=== PATIENT | female | born 1945 | race Caucasian/White ===

== ENCOUNTER → 2017-08-27 14:44 | Outpatient (CLI) | payer MEDICARE, OTHER, SELFPAY ==
--- NOTE | 2017-08-27 | DI.RAD.S_ITS ---
PROCEDURE: XR HIP W PEL IF DONE RT 2V INDICATIONS: RIGHT HIP PAIN TECHNIQUE: AP pelvis with lateral view(s) of the right hip(s). COMPARISON: [facility], , PELVIS WITH BILATERAL HIPS, 09/14/2014, 12:55. FINDINGS: Bones: No fractures or dislocations. Pelvic ring appears intact. No suspicious bony lesions. Arthritis of the hips, mild on the left and moderately severe on the right is again noted. There is interval increase in degree of joint space narrowing and marginal hypertrophic changes on the right, now considered grade 3 in severity. Soft tissues: The visualized bowel gas pattern is normal. No suspicious soft tissue calcifications. IMPRESSION: Progressive osteoarthritis right hip. Mild arthritis left hip. Dictated by: Mich Monique M.D. on 08/27/2017 at 15:45 Approved by: Mich Monique M.D. on 08/27/2017 at 15:47
== END ==
PROVIDERS: Family Provider Family Medicine; PCP Family Medicine; Visit Provider Family Medicine
DX: M16.0 Bilateral primary osteoarthritis of hip (principal)
CPT/HCPCS: 73502

== ENCOUNTER → 2017-10-15 11:38 | Outpatient (CLI) | payer MEDICARE, OTHER, SELFPAY ==
--- NOTE | 2017-10-15 | DI.MG.S_ITS ---
BILATERAL DIGITAL SCREENING MAMMOGRAM 3D/2D WITH CAD: 10/15/2017 CLINICAL: Routine screening. Family history of breast cancer. Comparison is made to exams dated: 08/28/2016 mammogram, 08/17/2015 mammogram, and 08/10/2014 mammogram - [facility]. The tissue of both breasts is heterogeneously dense. This may lower the sensitivity of mammography. Current study was also evaluated with a Computer Aided Detection (CAD) system. No significant masses, calcifications, or other findings are seen in either breast. There has been no significant interval change. IMPRESSION: NEGATIVE There is no mammographic evidence of malignancy. A 1 year screening mammogram is recommended. This exam was interpreted at Station ID: [id number]. NOTE: For mammograms, a report in lay terms will be sent to the patient. Approximately 15% of breast malignancies will not be visualized mammographically. In the management of a palpable breast mass, a negative mammogram must not discourage biopsy of a clinically suspicious lesion. Electronically Signed By: Nikolay sherman/yaya:10/15/2017 16:36:36 letter sent: Normal Exam ACR BI-RADS Category 1: Negative [id number]
== END ==
PROVIDERS: Family Provider Family Medicine; PCP Family Medicine; Visit Provider Family Medicine
DX: Z12.31 Encounter for screening mammogram for malignant neoplasm of breast (principal)
CPT/HCPCS: 77063; 77067

== ENCOUNTER → 2018-02-09 11:57 | Outpatient (REF) | payer MEDICARE, OTHER, SELFPAY | LOC: LAB 11:57 | PROVIDERS: Family Provider Family Medicine; PCP Family Medicine; Visit Provider Family Medicine | DX: N39.0 Urinary tract infection, site not specified (principal) | CPT/HCPCS: 87077; 87086; 87186 ==

== ENCOUNTER → 2018-07-10 09:07 | Outpatient (CLI) | payer MEDICARE, OTHER, SELFPAY ==
--- NOTE | 2018-07-10 | DI.MRI.S_ITS ---
PROCEDURE: MR LUMBAR SPINE WO CON INDICATIONS: BILATERAL LEG PAIN TECHNIQUE: Noncontrast sagittal T1 spin echo and T2 fast echo, sagittal STIR, axial T1 and T2 fast spin echo through the lumbar spine. In cases with scoliosis, additional coronal T2 fast spin echo may be performed. COMPARISON: [facility], , L-SPINE 2-3 VIEWS, 08/03/2016, 9:14. FINDINGS: Image quality: Excellent. Alignment and Curvature: The there is trace anterolisthesis of L2 on L3, trace retrolisthesis of L5 on S1. Bone Marrow: Marrow is of normal overall signal. No acute vertebral body compression fractures. Spinal Cord: Conus medullaris terminates at the L1 level. Visualized cord demonstrates normal signal and size. Paraspinous Soft Tissues: No paravertebral masses. Discs: Moderate to severe desiccation is present at L5-S1, mild at L4-5. L1-L2: Minimal disc bulge without spinal stenosis or foraminal narrowing. Mild facet and ligamentum flavum hypertrophy. L2-L3: Mild disc bulge with minimal canal narrowing. Minimal bilateral foraminal narrowing with prominent ligamentum flavum and mild facet hypertrophy. L3-L4: Mild disc bulge with moderate spinal stenosis. Mild to moderate left and minimal right foraminal narrowing with prominent ligamentum flavum and mild facet hypertrophy. L4-L5: Mild disc bulge with moderate spinal stenosis. Minimal to mild bilateral foraminal narrowing with prominent ligamentum flavum hypertrophy and mild facet hypertrophy. L5-S1: Mild disc bulge with trace posterior central protrusion. Moderate spinal stenosis. Mild narrowing to the subarticular recess is noted on the left. IMPRESSION: 1. Multilevel degenerative changes. 2. Multilevel spinal stenosis predominantly secondary to significant ligamentum flavum arthropathy as well as facet arthropathy and disc bulges. 3. Overall mild to moderate multilevel foraminal narrowing predominantly secondary to facet/ligamentum flavum arthropathy. Most prominent level is noted at L3-4. Dictated by: Elida Topete M.D. on 07/10/2018 at 12:21 Approved by: Elida Topete M.D. on 07/10/2018 at 12:27
== END ==
PROVIDERS: Family Provider Family Medicine; PCP Family Medicine; Visit Provider Family Medicine
DX: M79.605 Pain in left leg (principal); M79.604 Pain in right leg; M85.852 Other specified disorders of bone density and structure, left thigh; Z78.0 Asymptomatic menopausal state; E07.9 Disorder of thyroid, unspecified; M47.816 Spondylosis without myelopathy or radiculopathy, lumbar region; M48.062 Spinal stenosis, lumbar region with neurogenic claudication; M48.07 Spinal stenosis, lumbosacral region; M51.26 Other intervertebral disc displacement, lumbar region; M51.27 Other intervertebral disc displacement, lumbosacral region
CPT/HCPCS: 72148; 77080

== ENCOUNTER → 2018-08-06 15:48 | Outpatient (CLI) | payer MEDICARE, OTHER, SELFPAY ==
[2018-08-06 17:18] LABS: Add Manual Diff / Slide Review NO; Basophils Absolute Auto 0 /uL (0-100); Basophils Percent Auto 0.5 % (0-2); Eosinophils Absolute Auto 200 /uL (0-450); Eosinophils Percent Auto 3.4 % (2-4); Hematocrit 36.8 % (36-46); Hemoglobin 12.4 g/dL (12.0-16.0); Lymphocytes Absolute Auto 1300 /uL (1100-4500); Lymphocytes Percent Auto 24.2 % (25-40); Mean Corpuscular HGB Conc 33.8 % (30-36); Mean Corpuscular Volume 88.7 fL (80-100); Monocytes Absolute Auto 500 /uL (0-900); Monocytes Percent Auto 9.3 % (3-14); Neutrophils Absolute Auto 3300 /uL (1500-7000); Neutrophils Percent Auto 62.6 % (50-75); Platelet Count 263 X10^3/uL (150-400); Red Blood Cell Count 4.15 X10^6/uL (4.0-5.2); Red Cell Distribution Width 14.2 % (11.6-14.8); White Blood Cell Count 5.2 X10^3/uL (4.5-11.0)
[2018-08-06 20:28] LABS: Carbon Dioxide 30 mmol/L (22-32); Chloride 103 mmol/L (98-107); HEMOLYSIS < 15 (0-50); Potassium 4.1 mmol/L (3.4-5.1); Sodium 142 mmol/L (137-145)
[2018-08-09 17:31] LABS: Alanine Aminotransferase 35 IU/L (9-52); Albumin Globulin Ratio 1.5 (1.0-2.8); Alkaline Phosphatase 85 U/L (38-126); Aspartate Aminotransferase 20 IU/L (14-36); Bilirubin Total 0.5 mg/dL (0.2-1.3); Blood Urea Nitrogen 18 mg/dL (7-17); Calcium 9.4 mg/dL (8.4-10.2); Estimated Glomerular Filt Rate > 60.0 mL/min (>60); Globulin 2.6 g/dL (1.7-4.1); Glucose 96 mg/dL (80-110); Total Protein 6.6 g/dL (6.3-8.2)
== END ==
PROVIDERS: Family Provider Family Medicine; PCP Family Medicine; Visit Provider Orthopaedic Surgery
DX: Z01.812 Encounter for preprocedural laboratory examination (principal); Z01.818 Encounter for other preprocedural examination; M16.11 Unilateral primary osteoarthritis, right hip
CPT/HCPCS: 36415; 80051; 80053; 85025; 93005

== ENCOUNTER → 2018-11-21 09:24 | Outpatient (CLI) | payer MEDICARE, OTHER, SELFPAY ==
--- NOTE | 2018-11-21 | DI.MG.S_ITS ---
BILATERAL DIGITAL SCREENING MAMMOGRAM 3D/2D WITH CAD: 11/21/2018 CLINICAL: Routine screening. Family history of breast cancer. Comparison is made to exams dated: 10/15/2017 mammogram, 08/28/2016 mammogram, and 08/17/2015 mammogram - [facility]. The tissue of both breasts is heterogeneously dense. This may lower the sensitivity of mammography. Current study was also evaluated with a Computer Aided Detection (CAD) system. No significant masses, calcifications, or other findings are seen in either breast. There has been no significant interval change. IMPRESSION: NEGATIVE There is no mammographic evidence of malignancy. A 1 year screening mammogram is recommended. This exam was interpreted at Station ID: [id number]. NOTE: For mammograms, a report in lay terms will be sent to the patient. Approximately 15% of breast malignancies will not be visualized mammographically. In the management of a palpable breast mass, a negative mammogram must not discourage biopsy of a clinically suspicious lesion. Electronically Signed By: Leo sanchez/yaya:11/21/2018 10:36:27 letter sent: Normal Exam ACR BI-RADS Category 1: Negative [id number]
== END ==
PROVIDERS: PCP Family Medicine; Visit Provider Family Medicine
DX: Z12.31 Encounter for screening mammogram for malignant neoplasm of breast (principal); Z80.3 Family history of malignant neoplasm of breast
CPT/HCPCS: 77063; 77067

== ENCOUNTER → 2018-12-02 16:12 | Outpatient (CLI) | payer MEDICARE, OTHER, SELFPAY ==
[2018-12-02 18:01] LABS: Add Manual Diff / Slide Review NO; Basophils Absolute Auto 0 /uL (0-100); Basophils Percent Auto 0.4 % (0-2); Eosinophils Absolute Auto 100 /uL (0-450); Eosinophils Percent Auto 2.3 % (2-4); Hematocrit 37.9 % (36-46); Lymphocytes Absolute Auto 1600 /uL (1100-4500); Mean Corpuscular HGB Conc 34.3 % (30-36); Mean Corpuscular Hemoglobin 29.2 PG (26-34); Mean Corpuscular Volume 85.3 fL (80-100); Monocytes Absolute Auto 500 /uL (0-900); Monocytes Percent Auto 8.8 % (3-14); Neutrophils Absolute Auto 3300 /uL (1500-7000); Neutrophils Percent Auto 59.5 % (50-75); Platelet Count 240 X10^3/uL (150-400); Red Blood Cell Count 4.44 X10^6/uL (4.0-5.2); Red Cell Distribution Width 14.2 % (11.6-14.8); White Blood Cell Count 5.5 X10^3/uL (4.5-11.0)
[2018-12-02 18:12] LABS: Carbon Dioxide 29 mmol/L (22-32); Chloride 105 mmol/L (98-107); HEMOLYSIS < 15 (0-50); Potassium 4.4 mmol/L (3.4-5.1); Sodium 141 mmol/L (137-145)
== END ==
PROVIDERS: PCP Family Medicine; Referring Provider Orthopaedic Surgery; Visit Provider Physical Medicine & Rehabilitation
DX: M16.11 Unilateral primary osteoarthritis, right hip (principal); M25.551 Pain in right hip; Z01.818 Encounter for other preprocedural examination
CPT/HCPCS: 36415; 80051; 85025

== ENCOUNTER 2018-12-16 06:10 | Inpatient (IN) | payer MEDICARE, OTHER, SELFPAY ==
[2018-12-02 08:35] VITALS: BMI 22.6
[2018-12-16] VITALS (18 sets, daily range): BP systolic 92–144; BP diastolic 51–88; PULSE 38–96; RESP 7–20; TEMP 35.6–36.6; O2SAT 56–100; BMI 22.0
--- NOTE | 2018-12-16 | DI.RAD.S_ITS ---
PROCEDURE: XR PELVIS 1-2V INDICATIONS: POST OPERATIVE RIGHT HIP TECHNIQUE: 1 view(s) of the pelvis acquired. COMPARISON: [facility], CR, XR PELVIS WITH LATERAL HIP RIGHT, 08/06/2018, 8:48. [facility], CR, XR PELVIS WITH LATERAL HIP RIGHT, 02/08/2018, 13:15. [facility], CR, XR HIP W PEL IF DONE RT 2V, 08/27/2017, 14:44. [facility], CR, XR HIP W PEL IF DONE RT 2V, 12/16/2018, 8:49. FINDINGS: Bones: There is right hip arthroplasty with the prosthesis in anatomic alignment. No fractures or dislocations. No suspicious bony lesions. Soft tissues: Visualized bowel gas pattern is normal. No suspicious soft tissue calcifications. Postsurgical changes in right thigh. IMPRESSION: Right hip prosthesis in anatomic alignment. Dictated by: Kaylin Peterson M.D. on 12/16/2018 at 10:20 Approved by: Kaylin Peterson M.D. on 12/16/2018 at 10:22
--- NOTE | 2018-12-16 06:00 | DI.RAD.S_ITS ---
PROCEDURE: XR HIP W PEL IF DONE RT 2V INDICATIONS: interoperative right hip TECHNIQUE: AP pelvis with lateral view(s) of the right hip(s). COMPARISON: [facility], CR, XR HIP W PEL IF DONE RT 2V, 08/27/2017, 14:44. FINDINGS: 2 intraoperative fluoroscopy images demonstrate total hip arthroplasty and placement of a prosthesis. Alignment is anatomic. IMPRESSION: Total arthroplasty of the right hip with the prosthesis in anatomic alignment. Dictated by: Kaylin Peterson M.D. on 12/16/2018 at 9:27 Approved by: Kaylin Peterson M.D. on 12/16/2018 at 9:30
[2018-12-16] MEDS: CELECOXIB 200 MG CAPSULE PO (06:58)
[2018-12-16] MEDS: ACETAMINOPHEN 325 MG TABLET 975 MG PO ×3 (06:59→19:26)
[2018-12-16] MEDS: PREGABALIN 75 MG CAPSULE PO (06:59)
[2018-12-16] MEDS: LACTATED RINGERS 1,000 ML 42 ML IV ×2 (07:10→09:20)
--- NOTE | 2018-12-16 07:46 | PM.PREOP ---
Pre-operative Note Interval Note History & Physical reviewed/Exam performed by Physician: Yes Changes to H&P: No
--- NOTE | 2018-12-16 08:38 | SUR.OPER ---
Head on pillow. Supine on fracture table with bilateral leg secured in padded hana table boots suspended on hana table armature. bilateral arms on padded armboards and secured at less than 90 degrees from body
[2018-12-16] MEDS: CEFAZOLIN 1 GM VIAL IV (08:46)
[2018-12-16] MEDS: KETOROLAC 30 MG/ML VIAL IV (08:51)
[2018-12-16] MEDS: ROPIVACAINE 0.5% PF 5 MG/ML 20ML VIAL 60 ML INJ (08:52)
[2018-12-16] MEDS: MORPHINE 4 MG/ML INJ INJ (08:52)
[2018-12-16] MEDS: TRANEXAMIC ACID 1,000 MG VIAL 2000 MG INJ ×2 (08:52→09:42)
--- NOTE | 2018-12-16 10:12 | PM.OP.1 ---
Operative Date/Time/Diagnoses Date of procedure: 12/16/18 Time of procedure: 10:12 Pre-op diagnosis: Right hip degenerative joint disease Post-op diagnosis: same Procedure & Clinicians Procedure: Right total hip arthroplasty via direct anterior approach (CPT code 27616 with assistant program manager) Same procedure as scheduled: Yes Indications: Patient is an 73-year-old female with severe right hip DJD. The patient has pain with activities and at rest, limited ambulation and activity tolerance, difficulties with ADLs, and failure of conservative treatment. We have discussed the nature of condition, treatment options, risks and benefits, and patient elects to proceed with total hip arthroplasty via direct anterior approach and gives informed consent. Surgeon: Jimmy Amor Picture Engraver: Naebel Parr Anesthesia Type: Spinal Operative Notes Closure Type: primary Specimen(s): none sent Prosthetic devices, grafts, tissues, transplants, or devices: Acetabulum: Ricks and [employer]hew R3 acetabular component size 52 mm Femoral component: Ricks [employer] Nephew Anthology stem size 6 with standard offset Femoral head: 32 mm + 0 cobalt chrome Estimated Blood Loss (mL): 150 Blood products transfused: none Procedure in detail: Patient brought to the operating room and after administration of IV antibiotics and spinal anesthetic placed supine on the [place] table with all bony prominences well padded and both feet wrapped and in the ski boots. Right hip area prepped and draped in the usual sterile fashion then a longitudinal incision created just lateral and distal to the ASIS. This was carried sharply through the skin and subcutaneous tissues down to the fascia overlying the TFL. The fascia was incised longitudinally and the muscle was retracted posteriorly allowing access to the intermuscular interval. Anterior circumflex vessels were identified and cauterized. Retractors were then placed around the inferior medial and superolateral femoral neck and a capsular incision was created with the lateral capsule excised. Femoral neck cut was then made according to preoperative templating and after the level of the cut was checked with fluoroscopy. Femoral head was then removed with a corkscrew device and acetabular retractors were placed. Sequential reaming of the acetabulum to 51 mm was performed with an excellent circumferential ream and fit with the trial. Position of the trial was confirmed satisfactory under fluoroscopic images, so the trial was removed and a permanent size 52 mm Ricks and Nephew R3 acetabular component was inserted and impacted into position under fluoroscopic guidance. Satisfactory position and fixation confirmed a permanent liner was then inserted. The femur was then maximally externally rotated extended and abducted appropriate soft tissue releases were performed the proximal femur entered and sequential broaching to 6 was performed with a [address] for trial reduction. Prior to reduction the position of the implant was confirmed in both AP and lateral fluoroscopic images as satisfactory. The hip was reduced and position and leg lengths were determined to be excellent. Stability testing was also performed and was satisfactory. Trial broach were then removed and a permanent size 6 Ricks and Nephew anthology stem was inserted and impacted into position with excellent position and fixation achieved. A 32 mm +0 cobalt chrome ball thick to the stem and reduced with excellent leg length range of motion and stability characteristics achieved an excellent visualization of leg lengths and position fluoroscopically. Periarticular soft tissues were infiltrated with a combination of ropivacaine, morphine, and Toradol. The hip was irrigated and the TFL fascia was closed with a running 1. Vicryl subcutaneous tissues closed with 2 O Vicryl and into cuticular stitch. Skin also closed with skin adhesive and sterile dressings applied. Anesthetic terminated the patient taken to postanesthesia recovery in satisfactory condition. Complications: none Post-operative Condition: stable Disposition: PACU Plan for aftercare: Patient will be admitted to the acute care [facility], and anticipate discharge on postop day 1 with follow-up in office in 10-14 days. Outpatient physical therapy will be arranged and patient will gradually increase activity as tolerated. Patient will continue use of postoperative Lovenox for 10 days postop.
--- NOTE | 2018-12-16 11:08 | SUR.PHASEI ---
PACU Note: HR 37-45. Asymptomatic. Dr. Serra informed. No complaints of pain. O2 sat WNL on 2 L/TOP LIFT COMPRESSER
[2018-12-16] MEDS: GLYCOPYRROLATE 1 MG/5 ML MDV 0.2 MG IV (11:15)
--- NOTE | 2018-12-16 12:34 | SUR.PHASEI ---
Late entry: Transfer from PACU nursing note-- patient awake, no complaints of pain, HR stabilized after dose of Robinul. HR 52-58, Sinus Cristian. Dressing CDI. Telephone report called trupti Joshi transported patient to IP room 210 via inpatient bed.
[2018-12-16] MEDS: LACTATED RINGERS 1,000 ML 125 ML IV ×2 (13:42→21:52)
--- NOTE | 2018-12-16 13:58 | PC.NURSE ---
pt received from pacu s/p anterior approach for right hip- aquacell in place and is dry and intact - pt reports no pain as of yet and reports no urge to void- denies nausea, taking ice chips/h20 and provided with 1/2 sandwich and crackers - room air spo2 93-98% - NO VOID POST OP YET
--- NOTE | 2018-12-16 16:18 | PT.IIE ---
Current Diagnoses Unilateral primary osteoarthritis, right hip (12/16/18) Surgery Performed Operation Date: 12/16/18 07:45 Actual Procedures p Total Hip Arthroplasty/Anterior Approach(Right) - Jimmy Amor MD Surgical History (Last Updated 12/02/18 @ 09:18 by Mariella Quinones RN) Hx of bilateral cataract extraction (Acute) Hx of thumb surgery (Acute ~1994) Hx of tonsillectomy (Acute) Medical History (Last Updated 12/02/18 @ 09:18 by Mariella Quinones RN) Age-related macular degeneration (Acute) Bilateral leg pain (Acute) Blepharitis of both upper and lower eyelid (Acute) Ear lesion (Acute) HLD (hyperlipidemia) (Acute) Hypothyroidism (Acute) Melanoma (Acute ~2009) Skin cancer (Acute) Physical Therapy Inpatient Evaluation/Re-Eval M1 PT/OT-IP Prior Functional Status Start: 12/16/18 13:33 Freq: NEEDED Status: Active Protocol: Document 12/16/18 16:06 RS (Rec: 12/16/18 16:18 RS [email or web address]) Medical Review Prior Functional Status Medical History Reviewed Yes Diet/Fluid Consistency Regular Communication no known deficits Mobility and Gait ind without device, denies falls Activities of Daily Living and IADL's denies needing assist with any self-care activity Prior Functional Level (Other details) drives Social History Household Members none Living Arrangements House Number of Floors (Floors) Two Floors Number of Stairs To Enter/Railing? 6STE w/ rail, 16 steps inside to 2nd floor with rails Home Environment Standard Height Toilet,Walk in Shower Home Equipment Front Wheel Walker,Straight Cane,Shower Seat with Backrest ,Shower Seat without Backrest, Audio Visual Collections Coordinator Employment Status Retired Additional Social History Comment Dtr will be providing 24/7 assist for the first week M2 PT-IP Current Condition Start: 12/16/18 13:33 Freq: NEEDED Status: Active Protocol: Document 12/16/18 16:06 RS (Rec: 12/16/18 16:18 RS [email or web address]) Physical Therapy Current Condition Current Condition Evaluation Date 12/16/18 Treatment Diagnosis R anterior FARRAH Onset Date 12/16/18 Precautions Anterior Hip Precautions No Hip Extension,No Hip External Rotation Weight Bearing Status Weight Bearing Status Weight Bear as Tolerated M3 PT-IP Subjective Start: 12/16/18 13:33 Freq: NEEDED Status: Active Protocol: Document 12/16/18 16:06 RS (Rec: 12/16/18 16:18 RS [email or web address]) Subjective Physical Therapy Visit Type Type Initial Evaluation Visit Start Time 15:00 Visit Stop Time 16:06 Total Visit Minutes 66 Physical Therapy Visit Comments Patient Comments Pt reports no pain at the moment, feels a little loopy but is motivated to participate. Therapy Pain Assessment Pain When Pain Assessed At Rest Pain Present Pain Present Denied Pain M4 PT-IP Mobility and Gait Start: 12/16/18 13:33 Freq: NEEDED Status: Active Protocol: Document 12/16/18 16:06 RS (Rec: 12/16/18 16:18 RS [email or web address]) PT-Bed Mobility Assessment Supine to Sit Supine to Sit Standby Assistance,Head of Bed Elevated Scooting Scooting to Edge of Bed Standby Assistance PT-Transfer Assessment Sit to and From Stand Sit to and from Stand Contact Guard Assistance Equipment Transfer Assistive Device Gait Belt,Front Wheeled Walker Transfers Transfer Destination Bed,Chair,Toilet Transfer Technique walked Transfer Ability Level of Assist Contact Guard Assistance Comments Mobility Comments Pt did have OH response to first standing attempt, felt a little wobbly but did not have any LOB. BP down to 38/64 after going to the bathroom, quickly josefa to 120s/60s after a few moments of sitting rest in recliner, no further drops measured the remainder of session. Gait Assessment Gait Gait Assistance Required: Contact Guard Assist Distance (Feet) 75 Assistive Devices Assistive Device Front Wheeled Walker Gait Deviations General Gait Pattern Antalgic,Decreased Stride Length,Decreased Feet Clearance Comments Gait Comments Pt with RLE longer before surgery, now exacerbated slightly, pt feels a little unsteady at mid/terminal stance on RLE but compensates well with BUE on FWW. LLE is subsequently shorter. No LOB and otherwise pt demonstrated smooth motion. Pt also very observant of maintain hip precautions while turning. PT-Balance Assessment Sitting Balance and Reactions Static Sitting Balance Ability Normal Dynamic Sitting Balance Ability Good Standing Balance and Reactions Static Standing Balance Ability Good Dynamic Standing Balance Ability Good Device Used FWW M5 PT-IP Objective Assessments Start: 12/16/18 13:33 Freq: NEEDED Status: Active Protocol: Document 12/16/18 16:06 RS (Rec: 12/16/18 16:18 RS [email or web address]) Orientation Orientation/Cognition Level of Alertness Alert Orientation Name,Age,Birthday,Month,Date, Year,Day of Week,Place, Situation Language Function Ability No Deficits Noted Safety Awareness Understands Safety Issues Memory Description No Deficits Noted Gross Range of Motion Lower Extremity ROM Impairments RLE limited within ant hip precautions Strength Comments Strength Comments pt with weaker RLE, most observable actively with R ankle DF, does not have full AROM for this M6 PT-IP Treatment Start: 12/16/18 13:33 Freq: NEEDED Status: Active Protocol: Document 12/16/18 16:06 RS (Rec: 12/16/18 16:18 RS [email or web address]) Physical Therapy Treatment Exercises Exercises Ankle Pumps,Gluteal Sets,Quad Sets,Heel Slides Education Education Provided Precautions,Weight Bearing Status,Post-Op Packet,Safety M7 PT-IP Assessment and Plan Start: 12/16/18 13:33 Freq: NEEDED Status: Active Protocol: Document 12/16/18 16:06 RS (Rec: 12/16/18 16:18 RS [email or web address]) PT Summary Assessment and Plan Potential Rehabilitation Potential Excellent Status of Condition at Evaluation Evolving Summary Impairments Pain,Strength,Balance,Bed Mobility,Transfers,Gait, Activity Tolerance Assessment Summary Pt presents with normal weakness and balance deficits after a R anterior FARRAH, today is POD#0. Pt is able to mobilize mostly with SBA<>CGA with FWW. Pt is below reported functional baseline and has great potential for functional improvement. After family training tomorrow at 0900 with daughter pt will be safe to discharge home with 24/7 assist from daughter. Pt already has FWW and OPPT set up. Goals Bed Mobility Goal Standby Assistance Transfer Goal Standby Assistance,Front Wheeled Walker Gait Goal Standby Assistance,Front Wheel Walker Gait Distance 200 Other Goals up/down 16 steps w/ rail and CGA Days to Meet Goals 1 Frequency of Treatment Frequency Of Treatment Twice a Day Treatment Plan Physical Therapy Treatment Plan Bed Mobility Training,Transfer Training,Gait Training, Therapeutic Exercise,Balance Retraining,Post Op Education, Discharge Planning,Hot or Cold Pack,Neuromuscular Re-ed, Coordination Retraining,Manual Therapy Other Recommendations and Next Treatment family training at 0900 with [employer] dtr on Sunday Recommendations To Nursing Amount of Assist Needed 1 Person Assist Discharge Recommendations PT Discharge Recommendations Home with Assistance, Outpatient PT
[2018-12-16] MEDS: CEFAZOLIN 2 GM/100 ML FROZ.PIGGY IV (16:58)
[2018-12-17] VITALS: BP 135/66; PULSE 55; RESP 16; TEMP 36.2; O2SAT 95
[2018-12-17] MEDS: CEFAZOLIN 2 GM/100 ML FROZ.PIGGY IV (00:47)
--- NOTE | 2018-12-17 04:41 | PC.NURSE ---
Pt VSS, pt is complaining of some pain 10/16 but only has scheduled tylenol and PRN pain medication but refuses to have narcotics. Pt.'s cms is intact, VSS, lung sounds clear bilaterally. SCD's are on. Pt's aquacell dressing is clean/dry and intact.
[2018-12-17 06:36] LABS: Hematocrit 34.1 % (36-46); Hemoglobin 11.6 g/dL (12.0-16.0)
[2018-12-17] MEDS: ENOXAPARIN 40 MG/0.4 ML SYRINGE SUBCUT (07:33)
[2018-12-17] MEDS: ACETAMINOPHEN 325 MG TABLET 975 MG PO (07:33)
--- NOTE | 2018-12-17 07:45 | PM.DS.1 ---
History of Present Illness History of Present Illness Date Patient Seen: 12/17/18 Time Patient Seen: 07:32 Chief complaint: [address] Total Right Hip Athroplasty Narrative: Patient is an 73-year-old female with severe right hip DJD. The patient has pain with activities and at rest, limited ambulation and activity tolerance, difficulties with ADLs, and failure of conservative treatment. We have discussed the nature of condition, treatment options, risks and benefits, and patient elects to proceed with total hip arthroplasty via direct anterior approach and gives informed consent. Discharge Providers Provider Date of admission: 12/16/18 06:10 Discharge Date: 12/17/18 Primary care physician: Danny Bowles MD Consults: 12/16/18 12:26 Consult to Discharge Planning Routine Comment: Consult to Physical Therapy Evaluate & Treat Comment: Physician Instructions: post op FARRAH protocol Consult to Respiratory Therapy Evaluate & Treat Comment: Physician Instructions: Evaluate and treat Discharge provider: Anna Vallecillo PA-C Summary Hospital Course Discharge Diagnosis: s/p FARRAH malignant melanoma osteoarthritis Hospital Course: Mariella was admitted for a total hip arthroplasty with Dr. Amor. Hospital course was unremarkable. On postop day 1. Patient was ready to discharge home. She is eating and voiding without difficulty or assistance. Pain was well controlled. She has been up with physical therapy throughout her stay. Lovenox for DVT prophylaxis. Status at Discharge Functional status at discharge: uses cane/walker Exam Vital Signs (past 8 hours): - 12/17/18 00:00 Temperature 97.2 F L Pulse Rate 55 L Respiratory Rate 16 Blood Pressure 135/66 Pulse Oximetry 95 Oxygen Delivery Method Room Air Oxygen Flow Rate 0 Narrative Exam Narrative: Patient sitting up in bed in no acute distress. She is alert and oriented x3. Calves are soft, compressible, nontender bilaterally. Dressing is CDI. Sensation intact to light touch throughout bilateral lower extremities. She is able to actively dorsiflex plantar flex. Pain well controlled this morning. No complaints. Objective Labs Result Diagrams: 12/17/18 06:25 Labs: Laboratory Results - last 24 hr 12/17/18 06:25 Hgb 11.6 L Hct 34.1 L Discharge Plan Discharge Plan Patient Disposition: Home Discharge Med Rec/Prescriptions Prescriptions: New enoxaparin [Lovenox] 40 mg/0.4 mL Syringe 40 mg subcut DAILY 9 Days RF: 0 Continued atorvastatin [Lipitor] 10 MG tablet 5 mg PO BEDTIME Qty: 0 RF: 0 coenzyme Q10 [Co Q-10] 100 mg Capsule 100 mg PO DAILY Qty: 0 RF: 0 levothyroxine 125 mcg Tablet 125 mcg PO QAM RF: 0 ibuprofen [Advil] 200 mg Tablet 200 mg PO DAILY PRN (Reason: Pain) RF: 0 estradiol 0.01 % (0.1 mg/gram) Cream 1 g VAGINAL 2XW RF: 0 PreserVision AREDS-2 [phone] Capsule 1 tab PO BID RF: 0 Discontinued aspirin 81 MG tablet,delayed release (DR/EC) 81 mg PO QDAY Qty: 0 RF: 0 Follow up/Referrals: Danny Bowles MD [Primary Care Provider] - Skin/Wound/Dressing Care Report to your healthcare provider any signs of infection, such as:: chills, fever and increased pain Visit Report/Discharge Packet Instructions: DI for Hip Replacement, Enoxaparin Injection Discharge Data Primary Care Provider: Danny Bowles Discharges patient from system. Discharge Date/Time: 12/17/18 10:00
[2018-12-17 08:00] VITALS: BP 144/80; PULSE 67; RESP 15; TEMP 37; O2SAT 94
--- NOTE | 2018-12-17 09:36 | PT.IPTN ---
Current Diagnoses Unilateral primary osteoarthritis, right hip (12/16/18) Surgery Performed Operation Date: 12/16/18 07:45 Actual Procedures p Total Hip Arthroplasty/Anterior Approach(Right) - Jimmy Amor MD Physical Therapy Treatment Note M2 PT-IP Current Condition Start: 12/16/18 13:33 Freq: NEEDED Status: Active Protocol: Document 12/16/18 16:06 RS (Rec: 12/16/18 16:18 RS [id number]) Physical Therapy Current Condition Current Condition Evaluation Date 12/16/18 Treatment Diagnosis R anterior FARRAH Onset Date 12/16/18 Precautions Anterior Hip Precautions No Hip Extension,No Hip External Rotation Weight Bearing Status Weight Bearing Status Weight Bear as Tolerated M3 PT-IP Subjective Start: 12/16/18 13:33 Freq: NEEDED Status: Active Protocol: Document 12/17/18 09:12 CLB (Rec: 12/17/18 10:31 CLB [id number]) Subjective Physical Therapy Visit Type Type Treatment Note Visit Start Time 09:12 Visit Stop Time 09:36 Total Visit Minutes 24 Notes Pt daughter present for CG training. Number of ANTHROPOLOGY LECTURER Visits 1 Physical Therapy Visit Comments Patient Comments Pt willing to ambulate and trial stairs. Patient Goals Go home with daughter today. Therapy Pain Assessment Pain When Pain Assessed During Mobility Pain Present Pain Present Pain Reported M4 PT-IP Mobility and Gait Start: 12/16/18 13:33 Freq: NEEDED Status: Active Protocol: Document 12/17/18 09:12 CLB (Rec: 12/17/18 10:31 CLB [id number]) PT-Bed Mobility Assessment Supine to Sit Supine to Sit Standby Assistance Sit to Supine Sit to Supine Standby Assistance Scooting Scooting to Edge of Bed Standby Assistance PT-Transfer Assessment Sit to and From Stand Sit to and from Stand Standby Assistance Equipment Transfer Assistive Device Gait Belt,Front Wheeled Walker Transfers Transfer Destination Chair Transfer Technique walked Transfer Ability Level of Assist Standby Assistance Comments Mobility Comments Pt is SBA for all bed mobility and transfers. Pt had no dizziness with sitting up or standing. Gait Assessment Gait Gait Assistance Required: Standby Assistance Distance (Feet) 150 Able to Maintain Weight Bearing Status Yes During Gait Assistive Devices Assistive Device Gait Belt,Front Wheeled Walker Gait Deviations General Gait Pattern Antalgic,Decreased Stride Length,Decreased Feet Clearance Comments Gait Comments Pt increased ambulation distance with steady gait and safety awareness. Stair Climbing Assessment Evaluation Level of Assist On Stairs Standby Assistance,Contact Guard Assistance Devices Stair Climbing Assistive Devices Left Railing,Right Railing Technique/Endurance Stair Climbing Direction Ascend and Descend Stair Climbing Technique Step to Step Number of Steps Climbed 3 Stair Climbing Set # Repetitions (reps) 5 Comments Stair Climbing Comments Pt able to perform stair climbing with SBA-CGA with daughters assist. M5 PT-IP Objective Assessments Start: 12/16/18 13:33 Freq: NEEDED Status: Active Protocol: Document 12/16/18 16:06 RS (Rec: 12/16/18 16:18 RS [id number]) Orientation Orientation/Cognition Level of Alertness Alert Orientation Name,Age,Birthday,Month,Date, Year,Day of Week,Place, Situation Language Function Ability No Deficits Noted Safety Awareness Understands Safety Issues Memory Description No Deficits Noted Gross Range of Motion Lower Extremity ROM Impairments RLE limited within ant hip precautions Strength Comments Strength Comments pt with weaker RLE, most observable actively with R ankle DF, does not have full AROM for this M6 PT-IP Treatment Start: 12/16/18 13:33 Freq: NEEDED Status: Active Protocol: Document 12/17/18 09:12 CLB (Rec: 12/17/18 10:31 CLB [id number]) Physical Therapy Treatment Exercises Exercises Ankle Pumps,Gluteal Sets,Quad Sets,Heel Slides Other Treatments Other Treatment Performed Pt recalled 2/2 anterior hip precautions. M7 PT-IP Assessment and Plan Start: 12/16/18 13:33 Freq: NEEDED Status: Active Protocol: Document 12/17/18 09:12 CLB (Rec: 12/17/18 10:31 CLB [id number]) PT Summary Assessment and Plan Potential Rehabilitation Potential Excellent Status of Condition at Evaluation Evolving Summary Impairments Pain,Strength,Balance,Bed Mobility,Transfers,Gait, Activity Tolerance Assessment Summary Pt POD#1 improving with all mobility. Pt able to ambulate ~150ft to stairs and perform stairs with daughters assist. Pt is able to get OOB from flat bed SBA. Pt ambulates with steady safe gait and climbs stairs safely with daughter assist. Pt seems able to d/c with assist of daughter when medically stable . Goals Bed Mobility Goal Standby Assistance Transfer Goal Standby Assistance,Front Wheeled Walker Gait Goal Standby Assistance,Front Wheel Walker Gait Distance 200 Other Goals up/down 16 steps w/ rail and CGA Days to Meet Goals 1 Frequency of Treatment Frequency Of Treatment Twice a Day Treatment Plan Physical Therapy Treatment Plan Bed Mobility Training,Transfer Training,Gait Training, Therapeutic Exercise,Balance Retraining,Post Op Education, Discharge Planning,Hot or Cold Pack,Neuromuscular Re-ed, Coordination Retraining,Manual Therapy Recommendations To Nursing Amount of Assist Needed 1 Person Assist Discharge Recommendations PT Discharge Recommendations Home with Assistance, Outpatient PT
--- NOTE | 2018-12-17 12:09 | CM.DANOTE ---
DCP/Assessment: Reviewed chart Patient is a 73yr old female admitted [facility] for right FARRAH performed on 12-16-[address] Amor. PCP is Dr. Bowles. Primary payor is 1)Medicare 2)[employer]. Attempted to meet with patient to explain CM/SW role. Patient had already been discharged at time of CM team visit. Spoke with RN whom reports patient is bland path patient and had no d/c planning needs. Patient scheduled to attend outpatient therapy. Family provided transport. P: Home today with no identified d/c planning needs. ERIKA Alvarez Discharge Planning/Care Management CM Discharge Assessment Start: 12/17/18 12:07 Freq: Status: Discharge Protocol: Document 12/17/18 12:07 KJS (Rec: 12/17/18 12:09 KJS [id number]) Discharge Planning Assessment Assigned Director Of Neurology ERIKA Alvarez Advance Directives? Yes Advance Directives on File No History Provided By Medical Record Prior Living Arrangements House Household Members none Willing to Return to Facility? No Independent with ADL's Yes Is patient alert and oriented? Yes Caregiver for Another No DME Already Rented / Owned FWW / Walker Patient/Family Preference OP PT Therapy Barriers to Discharge No Discharge Plan Home Transportation Arrangement Family to provide transport Referrals Initiated None needed Review Status In Process Next Review Type Continued Stay Review Pre-Anesthesia Assessment Start: 12/02/18 08:35 Freq: Status: Complete Protocol: Document 12/02/18 08:35 CAB (Rec: 12/02/18 09:54 CAB [id number]) Pre-Anesthesia Assessment Patient Information Reviewed Via Phone Assessment Assessment Completed With Patient Diagnostic Results BMP/CMP,CBC,EKG Comment Labs/EKG @ 08/06/18 Primary Care Provider Danny Bowles Medical Clearance Received Yes Seen Specialist in Last 12 Months Yes Specialist Seen Screenplay Writer,Orthopedist Comment PCP clearance scanned to record Primary Language [place] [employer] Counter Person Required No Height 171.45 cm Weight 66.678 kg Body Mass Index (BMI) 22.6 Hearing Ability Normal Visual Assist Magnifying Glass Dentition Type Teeth, Natural Present Barriers to Learning None Other Aids No Hx Anesthesia Reactions No Hx Family Anesthesia Reaction No Hx Malignant Hyperthermia No Hx Blood Transfusions No Anesthesia Review Requested No Entry Processor No alcohol intake current alcohol intake frequency 0-2 drinks per day Smoking Status Never smoker Substance Use Type does not use Pain Present Pain Reported Musculoskeletal Symptoms Abnormal Gait,Difficulty Walking,Joint Pain History of Falling (Recent or History of No ) Patient is completely paralyzed or No completely immobile Mental Status Oriented to own ability Is patient on oxygen? No Does patient have REYES/SOB No Hx Sleep Apnea No Currently Taking a Beta Santiago No Can You Climb a Flight of Stairs Without Yes SOB Hx Chest Pain No Hx SOB No Hx Syncope or Dizziness No Anti-Coagulant Therapy No Has a Commercial Field Inspector No Cardiac Testing No Hx Pacemaker/ICD No Pacemaker Rep Required? No Diet Type At Home Regular dysphagia No Bladder Pattern Frequency Urinary Catheter Present No Hx Urinary Self Catheterization No Diabetes No Patient No Lactating No Hx Drug Resistant Organism No Presence of External or Internal Medical No Devices Have you traveled outside the [facility] in the last 30 days? Marital Status / Lives With none Prior Living Arrangements House Number of Floors (Floors) Two Floors Support System Child/Children Does the Patient Have Assistance After Yes Surgery Patient Discharge Plan Description Return Home Comment Daughter will stay w/pt @ [facility]. Pt advised overnight length of stay per surge Feels Safe in Current Environment Yes Been Physically Hurt or Threatened By a No Person in Current Environment Do you have thoughts of harming yourself None or others? Are you currently considering suicide? No Do you have a plan to hurt yourself or No Plan others? Do You Have Any Spiritual Beliefs That No May Affect Your HC Choices? Do You Have Any Cultural Practices That No May Affect Your HC Choices? Comment Prostestant Who Can We Speak to About Patient's Care Family, friends Identifying Code for Release of Patient Declines to issue Information Health Care Proxy/Next of Kin Misty (daughter) Health Care Proxy Emergency Contact Name Misty (daughter) Saturnino (son) Emergency Contact Phone Number Misty: [phone] [phone] Advance Directives? Yes Advance Directives on File No Requested Patient Bring Advanced Yes Directives DOS Power of Import Customs Clearing Agent Yes Power of Import Customs Clearing Agent Name Misty (daughter) Power of Import Customs Clearing Agent PAC Instructions Do not shave/clip surgical site,Durable medical equipment ,Medications to take/avoid, Nasal antibiotic,No ETOH/ petroleum product on skin DOS, NPO,Post-op transportation,Pre -surgical wash,Sturdy shoes/ comfortable clothes,Do not bring valuables and remove jewelry
== END 2018-12-17 10:00 | disposition home or self-care (01) | DRG 470 ==
PROVIDERS: Admitting Provider Orthopaedic Surgery; PCP Family Medicine; Visit Provider Orthopaedic Surgery
PROC: 0SR902Z Replacement of Right Hip Joint with Metal on Polyethylene Synthetic Substitute, Open Approach (ICD-10-PCS; CPT 27130; principal; 2018-12-16 07:45)
DX: M16.11 Unilateral primary osteoarthritis, right hip (principal); Z87.891 Personal history of nicotine dependence
CPT/HCPCS: 36415; 72170; 73502; 76000; 85014; 85018; 97110; 97116; 97161; 97530; C1776; J0690; J1650; J1885; J2250; J2270; J2704; J3010

== ENCOUNTER → 2019-03-25 08:04 | Outpatient (CLI) | payer MEDICARE, OTHER, SELFPAY ==
[2018-12-16 12:30] VITALS: BMI 22.0
[2019-03-25 09:14] LABS: Cholesterol 162 mg/dL (140-199); HDL Cholesterol 38 mg/dL (40-60); LDL Cholesterol Calculated 91 mg/dL (<100); Triglycerides 165 mg/dL (35-150); VLDL Cholesterol Calculated 33 mg/dL (2-30)
== END ==
PROVIDERS: PCP Family Medicine; Visit Provider Family Medicine
DX: E78.5 Hyperlipidemia, unspecified (principal)
CPT/HCPCS: 36415; 80061

== ENCOUNTER → 2019-11-24 15:29 | Outpatient (CLI) | payer MEDICARE, OTHER, SELFPAY ==
[2018-12-16 12:30] VITALS: BMI 22.0
--- NOTE | 2019-11-24 | DI.MG.S_ITS ---
BILATERAL DIGITAL SCREENING MAMMOGRAM 3D/2D WITH CAD: 11/24/2019 CLINICAL: Routine screening. Family history of breast cancer. Comparison is made to exams dated: 11/21/2018 mammogram, 10/15/2017 mammogram, and 08/28/2016 mammogram - [facility]. The tissue of both breasts is heterogeneously dense. This may lower the sensitivity of mammography. Current study was also evaluated with a Computer Aided Detection (CAD) system. No significant masses, calcifications, or other findings are seen in either breast. There has been no significant interval change. IMPRESSION: NEGATIVE There is no mammographic evidence of malignancy. A 1 year screening mammogram is recommended. This exam was interpreted at Station ID: [id number]. NOTE: For mammograms, a report in lay terms will be sent to the patient. Approximately 15% of breast malignancies will not be visualized mammographically. In the management of a palpable breast mass, a negative mammogram must not discourage biopsy of a clinically suspicious lesion. Electronically Signed By: Rebeca fleming/yaya:11/24/2019 15:44:14 letter sent: Normal Exam ACR BI-RADS Category 1: Negative 3341F
== END ==
PROVIDERS: PCP Family Medicine; Referring Provider Family Medicine; Visit Provider Family Medicine
DX: Z12.31 Encounter for screening mammogram for malignant neoplasm of breast (principal); Z80.3 Family history of malignant neoplasm of breast
CPT/HCPCS: 77063; 77067

== ENCOUNTER → 2020-12-09 14:35 | Outpatient (CLI) | payer MEDICARE, OTHER, SELFPAY ==
[2018-12-16 12:30] VITALS: BMI 22.0
--- NOTE | 2020-12-09 | DI.MG.S_ITS ---
BILATERAL DIGITAL SCREENING MAMMOGRAM 3D/2D WITH CAD: 12/09/2020 CLINICAL: Routine screening. Family history of breast cancer. Comparison is made to exams dated: 11/24/2019 mammogram, 11/21/2018 mammogram, and 10/15/2017 mammogram - [facility]. The tissue of both breasts is heterogeneously dense. This may lower the sensitivity of mammography. Current study was also evaluated with a Computer Aided Detection (CAD) system. No significant masses, calcifications, or other findings are seen in either breast. There has been no significant interval change. IMPRESSION: NEGATIVE There is no mammographic evidence of malignancy. A 1 year screening mammogram is recommended. This exam was interpreted at Station ID: [id number]. NOTE: For mammograms, a report in lay terms will be sent to the patient. Approximately 15% of breast malignancies will not be visualized mammographically. In the management of a palpable breast mass, a negative mammogram must not discourage biopsy of a clinically suspicious lesion. Electronically Signed By: Leo sanchez/yaya:12/09/2020 17:58:00 letter sent: Normal Exam ACR BI-RADS Category 1: Negative 3341F
== END ==
PROVIDERS: PCP Family Medicine; Referring Provider Family Medicine; Visit Provider Family Medicine
DX: M85.88 Other specified disorders of bone density and structure, other site (principal); Z12.31 Encounter for screening mammogram for malignant neoplasm of breast; Z78.0 Asymptomatic menopausal state; E07.9 Disorder of thyroid, unspecified
CPT/HCPCS: 77063; 77067; 77080

== ENCOUNTER → 2021-03-15 14:09 | Outpatient (CLI) | payer MEDICARE, OTHER, SELFPAY ==
[2018-12-16 12:30] VITALS: BMI 22.0
--- NOTE | 2021-03-15 | DI.MRI.S_ITS ---
PROCEDURE: MR KNEE RT WO/W CON INDICATIONS: Other specified joint disorders, right knee TECHNIQUE: Noncontrast sagittal PD fast spin echo and T2 fast spin echo with fat saturation, sagittal 3-D FLASH with fat saturation; coronal T1 spin echo and PD fast spin echo with fat saturation, and axial T1 spin echo and PD fast spin echo with fat saturation through the knee. Post-contrast axial, coronal, and sagittal T1 spin echo with fat saturation through the knee. COMPARISON: None. FINDINGS: Image quality: Excellent. Menisci: The medial and lateral menisci demonstrate normal morphology and internal signal. The meniscal root ligaments appear intact. Cruciate ligaments: The anterior and posterior cruciate ligaments appear intact. Medial structures: The medial collateral ligament appears intact. Visualized portions of the pes anserinus tendons appear normal. No abnormal bursal fluid. Lateral structures: The lateral collateral ligament, long and short heads of the biceps femoris tendon appear intact. The popliteus tendon appears normal. Iliotibial band appears normal. Anterior structures: The quadriceps and patellar tendons appear intact. Patellar alignment is normal. No femoral trochlear dysplasia or ventral trochlear prominence. Moderate edema in the superolateral aspect of the infrapatellar fat pad. Bones and cartilage: No displaced fracture. Moderate ill-defined T2 signal elevation within the patellar apex. Severe overlying articular cartilage loss is present. Mild articular cartilage loss overlies the lateral patellar facet inferiorly. Mild articular cartilage loss overlies the lateral patellar apex. Joint space: There is physiologic knee joint fluid. No Beltre's cyst. Normal appearing synovial plicae are incidentally noted. IMPRESSION: 1. No internal derangement. 2. Findings consistent with lateral patellofemoral friction syndrome in the appropriate clinical setting. 3. Medial and patellofemoral compartment articular cartilage loss. Dictated by: Jonathan Mccartney M.D. on 03/15/2021 at 15:33 Approved by: Jonathan Mccartney M.D. on 03/15/2021 at 16:59
== END ==
PROVIDERS: PCP Family Medicine; Referring Provider Family Medicine; Visit Provider Family Medicine
DX: M25.861 Other specified joint disorders, right knee (principal)
CPT/HCPCS: 73723; A9579

== ENCOUNTER → 2021-12-15 11:27 | Outpatient (CLI) | payer MEDICARE, OTHER, SELFPAY ==
[2018-12-16 12:30] VITALS: BMI 22.0
--- NOTE | 2021-12-15 | DI.MG.S_ITS ---
BILATERAL DIGITAL SCREENING MAMMOGRAM 3D/2D WITH CAD: 12/15/2021 CLINICAL: Routine screening. Family history of breast cancer. Comparison is made to exams dated: 12/09/2020 mammogram, 11/24/2019 mammogram, and 11/21/2018 mammogram - [facility]. Both breasts are heterogeneously dense, which may obscure small masses (category c / 51-75% glandular tissue). Current study was also evaluated with a Computer Aided Detection (CAD) system. No significant masses, calcifications, or other findings are seen in either breast. There has been no significant interval change. IMPRESSION: NEGATIVE There is no mammographic evidence of malignancy. A 1 year screening mammogram is recommended. Based on the Tyrer Cuzick model (a risk assessment model) the patient's lifetime risk is 11.7% and her 10 year risk is 0.0%. According to the ACR, ACS, and NCCN guidelines, an annual breast MRI exam along with mammogram is recommended if the patient's lifetime risk is 20% or greater. This exam was interpreted at Station ID: [id number]. NOTE: For mammograms, a report in lay terms will be sent to the patient. Approximately 15% of breast malignancies will not be visualized mammographically. In the management of a palpable breast mass, a negative mammogram must not discourage biopsy of a clinically suspicious lesion. Electronically Signed By: Sameer tripp/yaya:12/15/2021 12:52:48 letter sent: Normal Exam ACR BI-RADS Category 1: Negative 3341F
== END ==
PROVIDERS: PCP Family Medicine; Referring Provider Family Medicine; Visit Provider Family Medicine
DX: Z12.31 Encounter for screening mammogram for malignant neoplasm of breast (principal); Z80.3 Family history of malignant neoplasm of breast
CPT/HCPCS: 77063; 77067

== ENCOUNTER → 2022-12-19 08:09 | Outpatient (CLI) | payer MEDICARE, OTHER, SELFPAY ==
[2018-12-16 12:30] VITALS: BMI 22.0
--- NOTE | 2022-12-19 | DI.MG.S_ITS ---
BILATERAL DIGITAL SCREENING MAMMOGRAM 3D/2D WITH CAD: 12/19/2022 CLINICAL: Routine screening. Family history of breast cancer. Comparison is made to exams dated: 12/15/2021 mammogram, 12/09/2020 mammogram, and 11/24/2019 mammogram - [facility]. Both breasts are heterogeneously dense, which may obscure small masses (category c / 51-75% glandular tissue). Current study was also evaluated with a Computer Aided Detection (CAD) system. There is an equal density asymmetry with a spiculated margin in the right breast at 1 o'clock posterior depth. This is more prominent and increased in size. There also is a possible developing irregular asymmetry in the right breast posterior depth central to the nipple seen on the craniocaudal view only. No other significant masses, calcifications, or other findings are seen in either breast. IMPRESSION: INCOMPLETE: NEEDS ADDITIONAL IMAGING EVALUATION The equal density asymmetry in the right breast at 1 o'clock posterior depth is indeterminate. Additional views with possible ultrasound are recommended. The possible developing irregular asymmetry in the right breast posterior depth central to the nipple seen on the craniocaudal view only is indeterminate. Additional views with possible ultrasound are recommended. Based on the Tyrer Cuzick model (a risk assessment model) the patient's lifetime risk is 10.5% and her 10 year risk is 0.0%. According to the ACR, ACS, and NCCN guidelines, an annual breast MRI exam along with mammogram is recommended if the patient's lifetime risk is 20% or greater. This exam was interpreted at Station ID: [id number]. NOTE: For mammograms, a report in lay terms will be sent to the patient. Approximately 15% of breast malignancies will not be visualized mammographically. In the management of a palpable breast mass, a negative mammogram must not discourage biopsy of a clinically suspicious lesion. Electronically Signed By: Luly quintero/yaya:12/19/2022 12:41:34 letter sent: Additional Imaging Needed ACR BI-RADS Category 0: Incomplete 3340F
== END ==
PROVIDERS: PCP Family Medicine; Referring Provider Family Medicine; Visit Provider Family Medicine
DX: Z12.31 Encounter for screening mammogram for malignant neoplasm of breast (principal); Z80.3 Family history of malignant neoplasm of breast
CPT/HCPCS: 77063; 77067

== ENCOUNTER → 2023-01-12 09:19 | Outpatient (CLI) | payer MEDICARE, OTHER, SELFPAY ==
[2018-12-16 12:30] VITALS: BMI 22.0
--- NOTE | 2023-01-12 | DI.US.S_ITS ---
ULTRASOUND OF RIGHT BREAST AND AXILLA: 01/12/2023 CLINICAL: Patient returns today to evaluate an asymmetry in the right breast. Comparison is made to exams dated: 01/12/2023 mammogram, 12/19/2022 mammogram, 12/15/2021 mammogram, 12/09/2020 mammogram, 11/24/2019 mammogram, and 11/21/2018 mammogram - [facility]. Color flow and real-time ultrasound of the right breast axilla were performed. Fernández scale images of the real-time examination were reviewed. There is a 0.6 cm x 0.6 cm x 0.6 cm oval mass in the right breast at 2 o'clock middle depth 6 cm from the nipple. This oval mass is hypoechoic with an echogenic boundary and posterior acoustic shadowing. No significant abnormalities were seen sonographically in the right axilla. IMPRESSION: SUSPICIOUS OF MALIGNANCY The 0.6 cm x 0.6 cm x 0.6 cm oval mass in the right breast is suspicious of malignancy. An ultrasound guided biopsy is recommended. No sonographic abnormalities identified in the axilla. No axillary adenopathy. Findings and recommendations were discussed with the patient by Dr. Mccartney during today's examination. This exam was interpreted at Station ID: [id number]. Electronically Signed By: Leo Giles M.D. aty/:01/12/2023 12:59:41 letter sent: Biopsy Required Ultrasound BI-RADS: 4 Suspicious for malignancy
--- NOTE | 2023-01-12 | DI.MG.S_ITS ---
UNILATERAL RIGHT DIGITAL DIAGNOSTIC MAMMOGRAM 3D/2D WITH ADDITIONAL VIEWS: 01/12/2023 CLINICAL: Additional evaluation requested from prior study. Comparison is made to exams dated: 12/19/2022 mammogram, 12/15/2021 mammogram, and 12/09/2020 mammogram - [facility]. The right breast is heterogeneously dense, which may obscure small masses (category c / 51-75% glandular tissue). There is an equal density asymmetry with a spiculated margin in the right breast at 2 o'clock posterior depth. This is seen in additional views. This is more prominent and increased in size. The possible developing benign irregular asymmetry in the right breast posterior depth central to the nipple seen on the craniocaudal view only is not reproduced and presumably represented superimposed breast tissue. This is not seen in additional views. No other significant masses or calcifications are seen in the breast. IMPRESSION: INCOMPLETE: NEEDS ADDITIONAL IMAGING EVALUATION The equal density asymmetry in the right breast at 2 o'clock posterior depth is indeterminate. An ultrasound is recommended for further evaluation and is scheduled to immediately follow this examination. Based on the Tyrer Cuzick model (a risk assessment model) the patient's lifetime risk is 10.5% and her 10 year risk is 0.0%. According to the ACR, ACS, and NCCN guidelines, an annual breast MRI exam along with mammogram is recommended if the patient's lifetime risk is 20% or greater. This exam was interpreted at Station ID: [id number]. NOTE: For mammograms, a report in lay terms will be sent to the patient. Approximately 15% of breast malignancies will not be visualized mammographically. In the management of a palpable breast mass, a negative mammogram must not discourage biopsy of a clinically suspicious lesion. Electronically Signed By: Leo Giles M.D. aty/:01/12/2023 12:57:04 ACR BI-RADS Category 0: Incomplete 3340F
== END ==
PROVIDERS: PCP Family Medicine; Referring Provider Family Medicine; Visit Provider Family Medicine
DX: N64.89 Other specified disorders of breast (principal); R92.8 Other abnormal and inconclusive findings on diagnostic imaging of breast; N63.11 Unspecified lump in the right breast, upper outer quadrant
CPT/HCPCS: 76642; 77065; G0279

== ENCOUNTER → 2023-02-05 13:41 | Outpatient (CLI) | payer MEDICARE, OTHER, SELFPAY ==
[2018-12-16 12:30] VITALS: BMI 22.0
--- NOTE | 2023-02-05 | PATH_ITS ---
[facility] Accession Number: [id number] No. of containers..01 Tissue . 01 Material submitted: . breast - RIGHT BREAST 2:00 6 CM FN MASS . 01 Diagnosis: A. Right Breast, Mass, 2 o'clock, 6 cm from the Nipple, Biopsy: Invasive (ductal) carcinoma, with a focal lobular growth pattern, grade 2 ([place] combined histologic grade, total score 6/9), with the following features: 1. Nuclear pleomorphism: Intermediate. (2/3) 2. Mitotic rate: Low. (1/3) 3. Tubular differentiation: Little or none. (3/3) 4. Size of invasive carcinoma: Present on three cores, single largest dimension at least 5.5 mm in this sample. 5. Ductal carcinoma in situ: Not identified. 6. Calcifications: In association with invasive carcinoma. 7. Lymphatic invasion: Not identified. 8. Prognostic markers: - Estrogen receptor status: Positive (more than 95% tumor cells staining, staining intensity: Strong). - Progesterone receptor status: Positive (more than 80% tumor cells staining, staining intensity: Moderate). - HER2: Negative for protein overexpression by immunohistochemistry (1+). [facility] 02/09/2023 1720 Local . 01 Electronically signed: . Kelly Ochoa MD, Pathologist NPI- [id number] . 01 Gross description: . The specimen is received in formalin labeled with the patient's name, , and US BX breast, consists of multiple yellow to gurrola soft tissue fragments aggregating to 2.0 x 1.1 x 0.2 cm. Inked yellow, filtered, and submitted entirely in cassette A1. . The specimen was removed on 02/05/2023 at 1443. Time in formalin not provided. Cold ischemic time cannot be calculated. Total fixation time is approximately 28 hours. ([id number]) /MRV 02/06/2023 1342 Local . 01 Microscopic: . E-cadherin and beta-catenin immunostains are performed on block A in order to evaluate the carcinoma for lobular phenotype, with appropriately staining external controls. The invasive carcinoma demonstrates retention of both markers (strong cell membranes for e-cadherin and beta-catenin), in support of ductal phenotype. . Predictive marker immunohistochemical studies are performed on block A1 with the invasive carcinoma showing the following results: . Estrogen receptor (SP1): Positive (more than 95% tumor cells staining, staining intensity: Strong). Progesterone receptor (1E2): Positive (more than 80% tumor cells staining, staining intensity: Moderate). Her2 (4B5): Negative for protein overexpression by immunohistochemistry (1+). . Internal controls for ER and NC are positive. Cold ischemic time is <5 minutes. The scoring criteria for breast biomarkers by immunohistochemistry is based on the ASCO/CAP guidelines (Eben AC et al, J Clin Oncol: 2017Oct 16;36(20):3627-3973 and Betsy ALLEN et al, Arch Pathol Lab Med: 2009;134(6):907-22). Deparaffinized sections of formalin fixed tissue (along with appropriate positive controls) are incubated with the above antibody(s). Using the automated [place] stainer, tissue is incubated with the designated antibody which is then localized by a non-biotin, dual polymer detection system. The external controls are reviewed for appropriate reactivity and found to be adequate. Results on the target cell population are indicated above. These tests have not been validated on decalcified tissue. This test was developed and its performance characteristics determined by [employer]. It has not been cleared or approved by the U.S. Food and Drug Administration. The FDA has determined that such clearance or approval is not necessary. This test is used for clinical purposes. It should not be regarded as investigational or for research. . 01 Pathologist provided ICD-10: C50.911 . 01 CPT . 900429, Q78075, E79390, 071646, 653699, 429586 Specimen Comment: A courtesy copy of this report has been sent to [facility] Pathology Performed at: 01 [facility] Cytology [address] [place] [address] [address], [place], [place] [id number] MD Nikolay Munoz MD Phone: [phone]
--- NOTE | 2023-02-05 | DI.US.S_ITS ---
PROCEDURE: US BX BREAST PERC W VAC DEVICE COMPARISON: None. INDICATIONS: RIGHT BREAST MASS FINDINGS: IMPRESSION: Dictated by: Leo Giles M.D. on 02/05/2023 at 16:59 Approved by: Leo Giles M.D. on 02/05/2023 at 17:03
--- NOTE | 2023-02-05 | DI.MG.S_ITS ---
UNILATERAL RIGHT DIGITAL DIAGNOSTIC MAMMOGRAM 3D/2D: 02/05/2023 CLINICAL: Post clip placement. Comparison is made to exams dated: 12/19/2022 mammogram, 12/15/2021 mammogram, 12/09/2020 mammogram, and 11/24/2019 mammogram - [facility]. The right breast is heterogeneously dense, which may obscure small masses (category c / 51-75% glandular tissue). There is a marker clip in the appropriate position in the right breast at 2 o'clock middle depth 6 cm from the nipple. This marker clip placement is at the biopsy site. This correlates with ultrasound findings and the biopsy. IMPRESSION: POST PROCEDURE MAMMOGRAM FOR MARKER PLACEMENT There was a successful marker clip placement in the right breast middle depth. Based on the Tyrer Cuzick model (a risk assessment model) the patient's lifetime risk is 10.5% and her 10 year risk is 0.0%. According to the ACR, ACS, and NCCN guidelines, an annual breast MRI exam along with mammogram is recommended if the patient's lifetime risk is 20% or greater. This exam was interpreted at Station ID: [id number]. NOTE: For mammograms, a report in lay terms will be sent to the patient. Approximately 15% of breast malignancies will not be visualized mammographically. In the management of a palpable breast mass, a negative mammogram must not discourage biopsy of a clinically suspicious lesion. Electronically Signed By: Leo Giles M.D. aty/:02/05/2023 17:03:28 ACR BI-RADS Category Post-procedure mammogram for marker placement
--- NOTE | 2023-02-05 13:58 | DI.US.S_ITS ---
Patient Name: DIONICIO BARCENAS date: 1945 Sex: F Attending Physician: Jelena Indications: Date: 02/12/2023 18:13 At the request of: RD ARAIZA Procedure: US bx breast perc w vac device ULTRASOUND GUIDED BIOPSY RIGHT BREAST WITH MARKING DEVICE INSERTED AND POST MAMMOGRAPHIC IMAGIN02/05/2023 CLINICAL: Right breast mass. PATIENT CONSENT: Risks (minor bleeding, infection, vasovagal reaction and repeat procedure), benefits and alternatives were explained to the patient and written informed consent was obtained. Correlation is made to exams dated: 01/12/2023 ultrasound, 01/12/2023 mammogram, 12/19/2022 mammogram, 12/15/2021 mammogram, and 12/09/2020 mammogram - [facility]. An ultrasound guided biopsy using real-time ultrasound was performed for the 0.6 cm x 0.5 cm oval mass located in the right breast at 2 o'clock middle depth 6 cm from the nipple. This was described on the previous mammography and ultrasound reports. The skin was prepped in the usual manner. Local anesthetic was administered to the access site. A skin chikis was made in the breast. The abnormality was approached from the lateral aspect. A 14 gauge biopsy needle was placed adjacent to the abnormality under ultrasound guidance. Once the needle was documented to be in the correct location, seven specimens were obtained using BARD Elevation biopsy device. A Celero A titanium ribbon clip which is permanently visible under ultrasound, byrd the biopsy site. clip was inserted into the biopsy cavity. A sterile dressing was applied to the access site. Post procedure mammographic imaging demonstrates the location device at the targeted area. The specimens were sent to the laboratory for pathological analysis. IMPRESSION: ULTRASOUND GUIDED BIOPSY MALIGNANT Ultrasound guided biopsy of the 0.6 cm x 0.5 cm mass in the right breast at 2 o'clock middle depth 6 cm from the nipple was successful. Pathology indicates malignant invasive ductal carcinoma (ID). Pathology results are concordant with imaging findings. Continued Report - Page 2 of 2 Patient Name: DIONICIO BARCENAS date: 1945 Sex: F Attending Physician: Jelena Indications: Date: 02/12/2023 18:13 At the request of: RD ARAIZA Procedure: US bx breast perc w vac device This exam was interpreted at Station ID: [id number]. lonnie Lux M.D., M.D./yaya:02/12/2023 18:13:32
== END ==
PROVIDERS: PCP Family Medicine; Referring Provider Family Medicine; Visit Provider Family Medicine
DX: C50.211 Malignant neoplasm of upper-inner quadrant of right female breast; Z17.0 Estrogen receptor positive status [ER+]
CPT/HCPCS: 19083; 77065

== ENCOUNTER → 2023-03-20 15:16 | Outpatient (CLI) | payer MEDICARE, OTHER, SELFPAY ==
[2018-12-16 12:30] VITALS: BMI 22.0
--- NOTE | 2023-03-20 | DI.MRI.S_ITS ---
BREAST MRI OF BOTH BREASTS: 03/20/2023 CLINICAL: Breast cancer. TECHNIQUE: The patient was placed prone in a dedicated breast imaging coil. Precontrast axial STIR and 3D FLASH without fat saturation sequences were obtained. Both before and after bolus injection of contrast, sequential 1-minute axial 3D FLASH with fat saturation sequences for 3 time points, with subtraction images and maximum intensity projections (MIP's) generated. Delayed sagittal FLASH images with fat saturation were also obtained. 20 cc Atlas Local Computer-aided detection, including computer algorithm analysis of MRI image data for lesion detection and characterization, pharmacokinetic analysis, with further physician review for interpretation, was performed. COMPARISON: [facility], , MM SCREENING MAMMO BI, 12/15/2021, 11:42. , MM SCREENING MAMMO BI, 12/19/2022, 8:24. [facility], , MM SPECIAL VIEW RT, 01/12/2023, 9:44. [facility], US, US BREAST RT LIMITED, 01/12/2023, 10:04. FINDINGS: Image quality: Excellent. There is mild background parenchymal enhancement. Right breast: In the 2 o'clock position right breast posterior depth, there is an enhancing mass with slight spiculation measuring 0.5 x 0.7 x 1.0 cm. No other areas of enhancement in the right breast. Left breast: In the 12 o'clock position of the left breast at a posterior depth, there is a cluster of 2 indistinct enhancing foci measuring roughly 4 to 5 mm each (series 5, image 69). The more anterior lesion demonstrates mixed initial enhancement with moderate delayed washout. Neither of these enhance as strongly as the biopsy proven malignancy in the contralateral breast. Miscellaneous: No axillary or internal mammary chain adenopathy. The visible portions of the chest wall, liver, heart, and lungs appear normal. IMPRESSION: INCOMPLETE: NEEDS ADDITIONAL IMAGING EVALUATION 1. 1.0 cm enhancing right breast lesion compatible with patient's known biopsy-proven carcinoma. 2. 2 left breast enhancing foci at 12:00 o'clock posterior depth, 1 of which demonstrates mildly suspicious enhancement kinetics. 3. A second-look left breast ultrasound is recommended for further characterization of these lesions. 4. No adenopathy. BIRADS 0, left breast ultrasound recommended. COMMENT: The imaging literature indicates that a negative contrast breast MRI examination has a high sensitivity and a moderate specificity for detecting and excluding invasive carcinomas to a detection threshold of 3-5 mm; nonetheless, appropriate clinical and mammographic follow-up are recommended. MRI is not sensitive for detecting DCIS (ductal carcinoma in situ) and may not detect large invasive neoplasms that show only minimal enhancement such as mucinous carcinoma. If there are suspicious calcifications or clinically worrisome palpable masses, then biopsy should still be considered. Invasive neoplasms can be hidden by co-existent and benign enhancement caused by mastitis, hormone therapy effects, radiation therapy, , and recent biopsy or surgery. False positive examinations can occur in a number of circumstances, including breasts that have recently been subject to invasive procedures and those that contain atypical ductal hyperplasia, hormonally stimulated glandular tissue, fat necrosis, or radial scars. This exam was interpreted at Station ID: [id number]. Electronically Signed By: Luly quintero/:03/20/2023 17:59:31 ACR BI-RADS Category 0: Incomplete [id number]
== END ==
PROVIDERS: PCP Family Medicine; Referring Provider Surgery; Visit Provider Surgery
DX: R92.8 Other abnormal and inconclusive findings on diagnostic imaging of breast (principal); C50.211 Malignant neoplasm of upper-inner quadrant of right female breast; N63.25 Unspecified lump in the left breast, overlapping quadrants
CPT/HCPCS: 77049; A9579

== ENCOUNTER → 2023-04-04 10:14 | Outpatient (CLI) | payer MEDICARE, OTHER, SELFPAY ==
[2018-12-16 12:30] VITALS: BMI 22.0
--- NOTE | 2023-04-04 | DI.US.S_ITS ---
LIMITED ULTRASOUND OF LEFT BREAST: 04/04/2023 CLINICAL: Patient returns today to evaluate a focal asymmetry in the left breast. Comparison is made to exams dated: 03/20/2023 breast MRI, 12/19/2022 mammogram, 12/15/2021 mammogram, 01/12/2023 ultrasound, and 02/05/2023 ultrasound biopsy - [facility]. Color flow and real-time ultrasound of the left breast 12 o'clock region were performed. Fernández scale images of the real-time examination were reviewed. No significant abnormalities were seen sonographically in the left breast. IMPRESSION: SUSPICIOUS OF MALIGNANCY There is no abnormality seen in the left breast to correspond with the breast MRI finding. Given contralateral malignancy, recommend MR-guided biopsy for further evaluation. Findings and recommendations were conveyed to the patient by the onsite radiologist at the time of the exam. This exam was interpreted at Station ID: [id number]. Electronically Signed By: Guilherme Rain M.D. ar/:04/04/2023 14:10:38 letter sent: Biopsy Required Ultrasound BI-RADS: 4 Suspicious for malignancy
== END ==
LOC: US 10:16
PROVIDERS: PCP Family Medicine; Referring Provider Surgery; Visit Provider Surgery
DX: R92.8 Other abnormal and inconclusive findings on diagnostic imaging of breast (principal); C50.911 Malignant neoplasm of unspecified site of right female breast
CPT/HCPCS: 76642

== ENCOUNTER → 2023-06-08 12:55 | Outpatient (CLI) | payer MEDICARE, OTHER, SELFPAY ==
[2018-12-16 12:30] VITALS: BMI 22.0
--- NOTE | 2023-06-08 12:58 | DI.RAD.S_ITS ---
Bone Density Report Name: DIONICIO BARCENAS Age: 78 Sex: Female Ethnicity: White Date of : 1945 Indication: osteopenia; Referring Provider: NICOLE KLEIN Study: Bone densitometry was performed. Exam Date: June 08, 2023 Accession number: [id number] Bone Density: Region BMD T-score Z-score Classification AP Spine(L1-L4) 0.848 -1.8 0.8 Osteopenia Femoral Neck (Left) 0.638 -1.9 0.4 Osteopenia Total Hip (Left) 0.829 -0.9 1.1 Normal Total Forearm (Left) 0.500 -1.5 1.4 Osteopenia 1/3 Forearm (Left) 0.678 -0.3 2.7 Normal UD Forearm (Left) 0.326 -2.0 0.1 Osteopenia World Health Organization criteria for BMD impression classify patients as: Normal (T-score at or above -1.0), Osteopenia (T-score between -1.0 and -2.5), or Osteoporosis (T-score at or below -2.5). 10-year Fracture Risk(1): Major Osteoporotic Fracture 14% Hip Fracture 3.8% Reported Risk Factors: [place] (), Neck BMD=0.638, BMI=23.2 (1) FRAX(R) Version 3.08. Fracture probability calculated for an untreated patient. Fracture probability may be lower if the patient has received treatment. Previous Exams: -- Region Exam Age BMD T-score BMD Change BMD Change Date g/cm2 vs Baseline vs Previous -- AP Spine (L1-L4) 06/08/2023 78 0.848 -1.8 -0.068 (-7.4%)# -0.054 (-5.9%)# 12/09/2020 75 0.901 -1.3 -0.014 (-1.5%) -0.006 (-0.7%) 07/10/2018 73 0.908 -1.3 -0.008 (-0.8%) 0.024 (2.8%)* 05/21/2015 69 0.883 -1.5 -0.032 (-3.5%)* -0.032 (-3.5%)* 07/09/2008 63 0.915 -1.2 Total Hip(Left) 06/08/2023 78 0.829 -0.9 -0.045 (-5.1%)# -0.015 (-1.8%)# 12/09/2020 75 0.844 -0.8 -0.030 (-3.4%)* -0.002 (-0.2%) 07/10/2018 73 0.846 -0.8 -0.028 (-3.2%)* -0.020 (-2.3%) 05/21/2015 69 0.866 -0.6 -0.008 (-0.9%) -0.008 (-0.9%) 07/09/2008 63 0.874 -0.6 -- *Denotes significance at 95% confidence level, LSC for AP Spine = 0.022 g/cm2, LSC for Total Hip = 0.027 g/cm2 # Denotes dissimilar scan types or analysis methods Impression: The patient has low bone mass, based on the Left Femoral Neck T-score. The patient has an estimated ten-year risk of hip fracture of 3.8% and an estimated ten-year risk of major fracture of 14%, based on the WHO FRAX algorithm. No significant bone loss was observed. Discussion: BONE DENSITY IS LOW AT ONE OR MORE SKELETAL SITES. THE PATIENT'S BMD AND CLINICAL RISK FACTORS CONTRIBUTE TO THIS PATIENT'S INCREASED RISK OF FRACTURE. This patient's lowest T-score is low at one or more skeletal sites. It meets the World Health Organization's (WHO) criteria for low bone mass (T-score between -1.0 and -2.5). The patient's 10-year risk of hip fracture as calculated by FRAX exceeds the threshold where pharmacological therapy is recommended by the National Osteoporosis Foundation (NOF). However, all treatment decisions require clinical judgment and consideration of individual patient factors, including patient preferences, comorbidities, previous drug use, risk factors not captured in the FRAX model (e.g., frailty, falls, vitamin D deficiency, increased bone turnover, interval significant decline in bone density) and possible under or overestimation of fracture risk by FRAX. The patient should follow a healthful lifestyle (good nutrition with adequate calcium and vitamin D, and appropriate weight-bearing exercise). Follow-Up: Consider a repeat BMD and Vertebral Fracture Assessment (VFA) exam in 2 years or sooner if medically necessary, to reassess this patient's status. Reported by: RAYNA DOBBINS M.D. on 06/08/2023 1:35:00 PM.
== END ==
PROVIDERS: PCP Family Medicine; Referring Provider Internal Medicine Medical Oncology; Visit Provider Internal Medicine Medical Oncology
DX: C50.919 Malignant neoplasm of unspecified site of unspecified female breast; M85.852 Other specified disorders of bone density and structure, left thigh; Z78.0 Asymptomatic menopausal state
CPT/HCPCS: 77080; 77081

== ENCOUNTER → 2023-10-05 17:55 | Outpatient (CLI) | payer MEDICARE, OTHER, SELFPAY ==
[2018-12-16 12:30] VITALS: BMI 22.0
== END ==
PROVIDERS: PCP Family Medicine; Visit Provider Nurse Practitioner Family
DX: R35.0 Frequency of micturition (principal)
CPT/HCPCS: 87077; 87086; 87186